=== PATIENT | male | born 1955 | race Caucasian/White ===

== ENCOUNTER 2017-08-07 09:15 | Observation (INO) | payer BC ==
[~2017-08-07] VITALS: Ht 185.4 cm; Wt 112.9 kg
[~2017-08-07 09:15] MED LIST: ASPI-805 PO; OXYC30TA64 PO; PARO10TA26 PO
[2017-08-07] MEDS ORDERED: ONDANSETRON 4 MG INJ IV STA (09:25)
[2017-08-07] MEDS ORDERED: morphine 4 MG/ML VIAL IV STA (09:25)
--- NOTE | 2017-08-07 10:27 | RADRPT ---
PROCEDURE: XR Left Shoulder. CLINICAL INDICATION: Left shoulder pain TECHNIQUE: 3 views of the left shoulder are available for review. COMPARISON: None available FINDINGS: There is an acute moderately displaced left mid clavicle fracture with 1 shaft's width inferior disp lacement of the distal fragment and tiny adjacent bone fragments. The acromioclavicular and coracoclavicular distances are maintained. Questionable lucency at the superior glenoid extending along the scapular neck may reflect cyst or a fracture line, not definitive. The visualized left lung is clear. IMPRESSION: 1. Acute moderately displaced left mid clavicle fracture as above. 2. Questionable lucency at the superior glenoid extending towards the scapular neck may reflect cyst ic bone lesion or possibly fracture line. Recommend correlation with CT or MRI for further evaluatio n. RPTAT: UU .Saw Warren MD, Date Time Electronically viewed and signed by .Saw Warren MD, on 08/07/2017 10:27 .K/
[2017-08-07] MEDS ORDERED: HYDROmorphONE 0.5 MG/0.5 ML SYG IV STA ×3 (10:31→21:39)
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
[2017-08-07] MEDS ORDERED: SOD CHLORIDE 0.9% 500 ML IV STA (10:59)
[2017-08-07] MEDS ORDERED: HYDROmorphONE 1 MG/ML SYG IV STA ×3 (11:03→14:40)
[2017-08-07 11:39] LABS: CALCIUM 9.5 mg/dl (8.4-10.2); CREATININE 0.97 mg/dl (0.61-1.24); POTASSIUM 4.4 mmol/L (3.5-5.1)
[2017-08-07] MEDS ORDERED: IOHEXOL 300MG/ML 150 ML BTL ONE (12:08)
[2017-08-07] MEDS ORDERED: SOD CHLORIDE 0.9% 100 ML ONE (12:08)
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
[2017-08-07 14:14] LABS: BASOPHILS % 0.3 % (0.0-2.0); EOSINOPHILS % 0.1 % (0.0-7.0); HEMATOCRIT 41.6 % (42.0-52.0); HEMOGLOBIN 14.2 g/dl (14.0-18.0); LYMPHOCYTES % 9.9 % (15.0-51.0); MEAN CORPUSCULAR HEMOGLOBIN 30.9 pg (29.0-33.0); MEAN CORPUSCULAR HGB CONC 34.1 g/dl (32.0-37.0); MEAN CORPUSCULAR VOLUME 90.6 fl (82.0-101.0); MEAN PLATELET VOLUME 9.2 fl (7.4-10.4); MONOCYTE # 0.6 10^3/ul (0.3-0.9); MONOCYTES % 6.5 % (0.0-11.0); NEUTROPHIL # 8.1 10^3/ul (1.6-7.5); NEUTROPHILS % 82.8 % (39.0-77.0); PLATELET COUNT 158 10^3/UL (140-415); RED BLOOD COUNT 4.59 10^6/ul (4.70-6.10); WHITE BLOOD COUNT 9.8 10^3/ul (4.8-10.8)
[2017-08-07 14:35] LABS: INR 1.04; PROTIME 13.7 Sec (11.9-14.9); PT RATIO 1.1
[2017-08-07 14:37] LABS: PARTIAL THROMBOPLASTIN TIME 26.7 Sec (25.0-35.0)
[2017-08-07] MEDS ORDERED: ONDANSETRON 4 MG INJ IV PRN ×2 (15:30→16:00)
[2017-08-07] MEDS ORDERED: ACETAMINOPHEN 325 MG TAB PO PRN ×2 (15:30→16:00)
[2017-08-07] MEDS ORDERED: NACL 0.9% 3 ML SYG IV SCH (16:00)
[2017-08-07] MEDS ORDERED: MAGNESIUM HYDROXIDE 30ML CUP PO PRN (16:00)
[2017-08-07] MEDS ORDERED: OXYCODONE/ACETAMINOPHEN (10/325) TAB PO PRN ×2 (16:00)
[2017-08-07] MEDS ORDERED: BISACODYL 10 MG SUPP PR PRN (16:00)
[2017-08-07] MEDS ORDERED: CHOL200073 PO (16:13)
[2017-08-07] MEDS ORDERED: DOCU-144 PO (16:15)
[2017-08-07] MEDS: HYDROmorphONE 0.5 MG/0.5 ML SYG IV PRN ×2 (16:56→20:44)
[2017-08-07] MEDS ORDERED: oxyCODONE 15 MG TAB PO PRN (17:30)
[2017-08-07 17:33] VITALS: BP 126/71; PULSE 59; RESP 19
[2017-08-07 17:34] VITALS: Ht 185.4 cm; Wt 112.9 kg
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
[2017-08-07 18:00] VITALS: PULSE 54
[2017-08-07] MEDS: oxyCODONE 5 MG TAB PO PRN ×2 (18:28→22:56)
[2017-08-07 20:00] VITALS: BP 118/59; RESP 20
[2017-08-07 20:14] VITALS: PULSE 73
[2017-08-07] MEDS: FAMOTIDINE 20 MG TAB PO SCH (20:47)
[2017-08-07] MEDS: DOCUSATE SODIUM 100 MG CAP PO PRN (21:57)
[2017-08-07] MEDS: PAROXETINE 10 MG TAB PO SCH (23:29)
[2017-08-08] VITALS (12 sets, daily range): BP systolic 113–131; BP diastolic 57–70; PULSE 56–63; RESP 18–20
[2017-08-08] MEDS: HYDROmorphONE 0.5 MG/0.5 ML SYG IV PRN ×5 (00:10→21:03)
[2017-08-08] MEDS: oxyCODONE 5 MG TAB PO PRN ×2 (03:42→09:05)
[2017-08-08] MEDS ORDERED: PAROXETINE 10 MG TAB PO SCH (09:00)
[2017-08-08] MEDS: FAMOTIDINE 20 MG TAB PO SCH ×2 (09:05→21:05)
[2017-08-08 09:09] LABS: BASOPHILS % 0.4 % (0.0-2.0); EOSINOPHILS # 0.1 10^3/ul (0.0-0.5); EOSINOPHILS % 1.6 % (0.0-7.0); HEMATOCRIT 42.3 % (42.0-52.0); LYMPHOCYTES # 1.9 10^3/ul (0.8-2.9); LYMPHOCYTES % 27.5 % (15.0-51.0); MEAN CORPUSCULAR HGB CONC 33.1 g/dl (32.0-37.0); MEAN CORPUSCULAR VOLUME 93.6 fl (82.0-101.0); MEAN PLATELET VOLUME 9.7 fl (7.4-10.4); MONOCYTE # 0.9 10^3/ul (0.3-0.9); MONOCYTES % 12.8 % (0.0-11.0); NEUTROPHILS % 57.3 % (39.0-77.0); PLATELET COUNT 155 10^3/UL (140-415); RED BLOOD COUNT 4.52 10^6/ul (4.70-6.10); RED CELL DISTRIBUTION WIDTH 13.2 % (11.5-14.5)
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
[2017-08-08 09:34] LABS: ALBUMIN 3.8 g/dl (3.3-4.9); ALBUMIN/GLOBULIN RATIO 1.31; BILIRUBIN,INDIRECT 1.2 mg/dl (0-1.1); BILIRUBIN,TOTAL 1.2 mg/dl (0.2-1.3); CALCIUM 9.8 mg/dl (8.4-10.2); CREATININE 1.12 mg/dl (0.61-1.24); MAGNESIUM 1.9 mg/dl (1.7-2.5); POTASSIUM 4.9 mmol/L (3.5-5.1); TOTAL PROTEIN 6.7 g/dl (6.1-8.1)
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
[2017-08-08] MEDS: oxyCODONE (CR) 40 MG TAB [oxyCONTIN] PO SCH ×2 (15:07→23:39)
[2017-08-08] MEDS: oxyCODONE 15 MG TAB PO PRN (18:02)
[2017-08-08] MEDS: PAROXETINE 10 MG TAB PO SCH (21:05)
[2017-08-09] VITALS (7 sets, daily range): BP systolic 116–148; BP diastolic 55–73; PULSE 52–62; RESP 18–20
[2017-08-09] MEDS: oxyCODONE 15 MG TAB PO PRN ×2 (01:34→10:19)
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
[2017-08-09] MEDS: FAMOTIDINE 20 MG TAB PO SCH (08:38)
[2017-08-09] MEDS: oxyCODONE (CR) 40 MG TAB [oxyCONTIN] PO SCH (08:39)
[2017-08-09] MEDS: DOCUSATE SODIUM 100 MG CAP PO PRN (09:05)
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
[2017-08-09] MEDS ORDERED: OXYC40TA26 PO (10:34)
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
--- NOTE | 2017-08-09 14:34 | PN ---
Date/Time of Note Date/Time of Note DATE: 08/09/17 TIME: 14:33 Assessment/Plan Lines/Catheters IV Catheter Type (from Nrs): Saline Lock Rosa in Place (from Nrs): No Assessment/Plan Chief Complaint/Hosp Course IMPRESSION: Clavicle fracture with rib fractures with tiny pneumothorax that only showed up on the CAT scan. No need for chest tube at the present time. RECOMMENDATIONS: Would continue present management, pulmonary toilet, ambulation. Follow up chest x-ray. Problems: Subjective 24 Hr Interval Summary Constitutional: improved Pain Control: mild Exam/Review of Systems Vital Signs Vitals Vital Signs Date Time Temp Pulse Resp B/P Pulse Ox O2 Delivery O2 Flow Rate FiO2 08/09/17 11:37 97.4 75 20 148/73 95 08/08/17 04:00 Non Rebreather 15.0 Intake and Output 08/08/17 08/08/17 08/09/17 15:00 23:00 07:00 Intake Total 1100 ml 240 ml Output Total 800 ml Balance 300 ml 240 ml Exam Neck: non-tender, supple Respiratory: clear to auscultation, normal air movement Cardiovascular: nl pulses, regular rate and rhythm Gastrointestinal: nl liver, spleen, non-tender, soft Results Result Diagram: 08/08/1771708/08/17717 LISA LOPEZ MD Aug 09, 2017 14:33
[2017-08-09] MEDS: HYDROmorphONE 0.5 MG/0.5 ML SYG IV PRN (15:07)
== END 2017-08-09 15:15 | disposition home or self-care (01) ==
LOC: E/R 09:15 → MS4 15:15
PROVIDERS: ADMIT Internal Medicine; ATTEND Internal Medicine
DX: S42.022A Displaced fracture of shaft of left clavicle, initial encounter for closed fracture (principal); S22.32XA Fracture of one rib, left side, initial encounter for closed fracture; S27.0XXA Traumatic pneumothorax, initial encounter; G89.29 Other chronic pain; F11.20 Opioid dependence, uncomplicated; M19.012 Primary osteoarthritis, left shoulder; E66.9 Obesity, unspecified; Z68.32 Body mass index [BMI] 32.0-32.9, adult; Z79.82 Long term (current) use of aspirin; Z88.0 Allergy status to penicillin; V49.40XA Driver injured in collision with unspecified motor vehicles in traffic accident, initial encounter; Y93.9 Activity, unspecified; Y99.9 Unspecified external cause status; Y92.410 Unspecified street and highway as the place of occurrence of the external cause
CPT/HCPCS: 71010; 71260; 73030; 73200; 80048; 80053; 83735; 85025; 85610; 85730; 93005; 96374; 96375; 96376; 97163; 99285; G0378; J1170; J2270; J2405; J7040; Q9967